=== PATIENT | female | born 1995 | race African-American/Black ===

== ENCOUNTER 2016-06-05 20:19 | Emergency (ER) | payer MEDICAID, OTHER ==
[2016-06-05 20:47] VITALS: BP 113/75; PULSE 84
--- NOTE | 2016-06-05 21:21 | PD ---
HPI Travel History International Travel<30 Days: No Contact w/Intl Traveler<30Days: No Known Affected Area: No History of Present Illness HPI This patient is a 20-year-old 1 para 0 EDC is July 04, 2016 presently at 35 weeks and 6 days she presents with a chief complaint of mild irregular cramping lower abdominal pain no ruptured membranes no vaginal bleeding the baby is active had sexual intercourse this morning and has been cramping since then care with Lauren garcia is significant for history of a bicornuate uterus and she had vaginal spotting early in the History Past Medical History Narrative Medical No known drug allergies no major medical problems Obstetric History Obstetric History First Past Surgical History Narrative Surgical Tonsils and adenoids Family History Family History: Negative Social History Alcohol Use: No Tobacco Use: No Substance Abuse: No Allergies-Medications (Allergen,Severity, Reaction): Coded Allergies: No Known Allergies (Verified , 12/06/15) Home Meds No Active Prescriptions or Reported Meds Review of Systems Gastrointestinal: Abdominal Pain (crampy lower abdominal pain) Physical Exam Narrative GENERAL: Well-nourished, well-developed patient. Alert oriented 3 and cooperative in no acute distress CARDIOVASCULAR: Regular rate and rhythm without murmurs, gallops, or rubs. RESPIRATORY: Breath sounds equal bilaterally. No accessory muscle use. ABDOMEN/GI: Gravid consistent with stated gestational age of 35 weeks Gravid to [-] weeks size Fundal Height: [-] GENITOURINARY: External Genitalia: intact and normal in appearance BUS glands: [-] Cervix: [-] Posterior soft Dilatation: [-] Closed Effacement: [-] 0 Station: [-] -2 Presentation: [-] Vertex Membranes: [intact Uterine Contractions: [-] Irregular FHT's: Category: [-] 1 Baseline: [-] 140 Reactive: [-]+ Variability: [-] Moderate Decels: [-] 0 EXTREMITIES: No cyanosis or edema. 2+ reflexes NEUROLOGICAL: Awake and alert. Motor and sensory grossly within normal limits. Five out of 5 muscle strength in all muscle groups. Normal speech. Data Data Vital Signs Reviewed: Yes (blood pressures 113/75 pulse is 84 she is afebrile) Orders Vital Signs (Adult) .ON ADMISSION (06/05/16 21:05) ^ Labor Status (06/05/16 21:05) ^ Hydration (06/05/16 21:05) MDM Medical Record Reviewed: Yes Narrative Course / MDM 20-year-old 35 weeks and 6 days Not in labor [place] after sexual intercourse Category 1 tracing Plan Patient has been monitored Discharge home By mouth fluid hydration Pelvic rest Warm tub bath kick count Keep her next appointment with Lauren Gray Diagnosis Diagnosis: Primary Impression: False labor before 37 completed weeks of gestation Qualified Code: O47.03 - False labor before 37 completed weeks of gestation, third trimester Additional Impression: 35 weeks gestation of Disposition: DISCHARGE HOME Condition: Stable Scripts No Active Prescriptions or Reported Meds Faina Corona MD Jun 05, 2016 21:21
== END 2016-06-05 22:34 | disposition home or self-care (01) ==
LOC: HOBED 20:19
DX: O47.03 False labor before 37 completed weeks of gestation, third trimester (principal); Z3A.35 35 weeks gestation of pregnancy
CPT/HCPCS: 99284

== ENCOUNTER 2016-06-19 10:13 | Emergency (ER) | payer MEDICAID ==
--- NOTE | 2016-06-19 10:57 | PD ---
HPI Chief Complaint Leaking fluid Date Seen: Jun 19, 2016 Time Seen: 10:51 Travel History International Travel<30 Days: No Contact w/Intl Traveler<30Days: No Known Affected Area: No History of Present Illness HPI 20-year-old 1 at 37+ weeks gestation with an EDC of July 04, 2016 who reports leaking fluid for 3 days. She denies contractions. She reports good movement. She denies bleeding or irritating vaginal discharge. Para: 0 : 1 History Past Medical History Medical History: Denies Significant Hx Obstetric History Obstetric History Uncomplicated care with Lauren Gray Family History Family History: Negative Social History Alcohol Use: No Tobacco Use: No Substance Abuse: No Allergies-Medications (Allergen,Severity, Reaction): Coded Allergies: No Known Allergies (Verified , 12/06/15) Home Meds No Active Prescriptions or Reported Meds Review of Systems Except as stated in HPI: all other systems reviewed are Neg Physical Exam Narrative GENERAL: Well-nourished, well-developed patient. SKIN: Warm and dry. ABDOMEN/GI: Abdomen soft, non-tender, bowel sounds present, no rebound, no guarding Gravid to [-] weeks size Fundal Height: [-] GENITOURINARY: External Genitalia: intact and normal in appearance BUS glands: [Negative-] Cervix: [-] Dilatation: [Closed-] Effacement: [50-] Station: [-3-] Presentation: [-Vertex] Membranes: [intact] Uterine Contractions: [Where-] FHT's: Category: [1-] Baseline: [-] Reactive: [-] Variability: [-] Decels: [-] EXTREMITIES: No cyanosis or edema. BACK: Nontender without obvious deformity. No CVA tenderness. NEUROLOGICAL: Awake and alert. Motor and sensory grossly within normal limits. Five out of 5 muscle strength in all muscle groups. Normal speech. Data Data Vital Signs Reviewed: Yes MDM Medical Record Reviewed: Yes Narrative Course / MDM Assessment: 37+ week and uterine with reactive NST and no evidence of ruptured membranes. Plan: The amnisure was negative. The patient was encouraged to continue her care visits as scheduled. Labor precautions were reviewed. Diagnosis Diagnosis: Primary Impression: 37 weeks gestation of Additional Impression: Irregular uterine contractions Disposition: DISCHARGE HOME Scripts No Active Prescriptions or Reported Meds Pedro Resendiz MD Jun 19, 2016 10:57
== END 2016-06-19 11:37 | disposition home or self-care (01) ==
LOC: HOBED 10:13
DX: O26.893 Other specified pregnancy related conditions, third trimester (principal); Z3A.37 37 weeks gestation of pregnancy
CPT/HCPCS: 59025; 84112

== ENCOUNTER 2016-06-20 21:52 | Inpatient (IN) | payer MEDICAID ==
[2016-06-20] MEDS ORDERED: LACTATED RINGER'S 1000 ML INJ 1,000 ML IV PRN (22:53)
[2016-06-20] MEDS ORDERED: OXYTOCIN 30 UNITS-500ML PREMIX 500 ML IV SCH (23:00)
[2016-06-20] MEDS ORDERED: LIDOCAINE HCL 1% 50 ML VIAL INFIL PRN (23:00)
[2016-06-20] MEDS ORDERED: ONDANSETRON HCL 4 MG/2 ML VIAL IV PRN (23:00)
[2016-06-20] MEDS ORDERED: LIDOCAINE HCL 1% 50 ML VIAL I-DERMAL PRN (23:00)
[2016-06-20] MEDS ORDERED: MINERAL OIL 10 ML VIAL TOPICAL PRN (23:00)
[2016-06-20] MEDS ORDERED: CITRIC ACID-SODIUM CITRATE LIQ 30 ML UDC PO SCH (23:00)
[2016-06-20] MEDS ORDERED: SODIUM CHLORID 0.9% 500 ML INJ 500 ML IV PRN (23:00)
[2016-06-20] MEDS ORDERED: OXYTOCIN 30 UNITS-500ML PREMIX 500 ML IV ONE (23:00)
[2016-06-20] MEDS ORDERED: SODIUM CHLOR 0.9% 1000 ML INJ 1,000 ML IV PRN (23:13)
--- NOTE | 2016-06-20 23:20 | PD ---
HPI Chief Complaint Water broke Date Seen: Jun 20, 2016 Travel History International Travel<30 Days: No Contact w/Intl Traveler<30Days: No History of Present Illness HPI This patient is a 20-year-old white female at 38 weeks presents complaining ruptured membranes at home, she is having occasional contraction no pain no bleeding, heart rate tracing is reactive and only a few irregular contractions been seen. Patient's been seen by Lauren Gray care Para: 0 : 1 History Past Medical History Medical History: Denies Significant Hx Allergies-Medications (Allergen,Severity, Reaction): Coded Allergies: No Known Allergies (Verified , 06/19/16) Home Meds No Active Prescriptions or Reported Meds Review of Systems General / Constitutional: No: Fever, Weight Gain, Chills, Other Eyes: No: Diploplia, Blurred Vision, Visual changes, Pain, Photophobia HENT: No: Headaches, Vertigo, Lightheadedness Cardiovascular: No: Irregular Rhythm, Chest Pain or Discomfort, Palpitations, Tachycardia, Syncope, Varicosities, Edema, Cyanosis Respiratory: No: Cough, Short of Breath, Other Gastrointestinal: No: Nausea, Vomiting, Diarrhea Genitourinary: No: Decreased Urinary Output, Oliguria Musculoskeletal: No: Limited ROM, Weakness, Cramping, Edema, Pain Skin: No Rash, No Itching, No Dryness, No Lumps, No Change in Pigmentation, No Change in Nails, No Alopecia, No Lesions Neurologic: No: Weakness, Dizziness, Syncope, Focal Abnormalities, Coordination Problem, Headache, Slurred Speech, Seizures Psychiatric: No: Depression, Suicidal Ideations, Homicidal Ideation Endocrine: No: Heat Intolerance, Cold Intolerance, Polydipsia, Polyuria, Other Physical Exam Narrative GENERAL: Well-nourished, well-developed patient. SKIN: Warm and dry. HEAD: Normocephalic and atraumatic. EYES: No scleral icterus. No injection or drainage. ENT: No nasal drainage noted. Mucous membranes pink. Airway patent. NECK: Supple, trachea midline. No JVD. CARDIOVASCULAR: Regular rate and rhythm without murmurs, gallops, or rubs. RESPIRATORY: Breath sounds equal bilaterally. No accessory muscle use. BREASTS: Bilateral exam showed no masses , no retractions, no nipple discharge. ABDOMEN/GI: Abdomen soft, non-tender, bowel sounds present, no rebound, no guarding Gravid to [36-] weeks size Fundal Height: [37 cm-] GENITOURINARY: External Genitalia: intact and normal in appearance BUS glands: [-] Cervix: [-] Dilatation: [-1] Effacement: [70-] Station: [-3] Presentation: [-vtx] bedside ultrasound Membranes: [i ruptured] amnio sure positive Uterine Contractions: [irreg-] FHT's: Category: [1-] Baseline: [-144] Reactive: [yes-] Variability: [mod-] Decels: [none-] EXTREMITIES: No cyanosis or edema. BACK: Nontender without obvious deformity. No CVA tenderness. NEUROLOGICAL: Awake and alert. Motor and sensory grossly within normal limits. Five out of 5 muscle strength in all muscle groups. Normal speech. Data Data Orders Ob (2e) Additional Admit Info (06/20/16 22:46) Admit To Inpatient (06/20/16 ) Code Status (06/20/16 22:53) Vital Signs (Adult) .Per protocol (06/20/16 22:53) Activity Oob Ad Leonie (06/20/16 22:53) ^ Heart (06/20/16 22:53) ^ Amnioinfusion (06/20/16 22:53) Urinary Catheter Management .ONCE (06/20/16 22:53) Lactated Ringer's 1000 Ml Inj (Lr 1000 M (06/20/16 22:53) Lactated Ringer's 1000 Ml Inj (Lr 1000 M (06/20/16 22:53) Sodium Chlorid 0.9% 500 Ml Inj (Ns 500 M (06/20/16 23:00) Sodium Chlor 0.9% 1000 Ml Inj (Ns 1000 M (06/20/16 23:13) Lidocaine 1% Inj (50 Ml) (Xylocaine 1% I (06/20/16 23:00) Citric Acid-Sodium Citrate Liq (Bicitra (06/20/16 23:00) Ondansetron Inj (Zofran Inj) (06/20/16 23:00) Fentanyl Inj (Fentanyl Inj) (06/20/16 23:00) Fentanyl Inj (Fentanyl Inj) (06/20/16 23:00) Complete Blood Count With Diff (06/20/16 22:53) Hold Clot (06/20/16 22:53) Abo/Rh Blood Type (06/20/16 22:53) Urinalysis - C+S If Indicated (06/20/16 22:53) Resp Oxygen Non Rebreathe Mask (06/20/16 ) ^ Epidural / Intrathecal Infus (06/20/16 22:53) Oxytocin 30 Units-500ml Premix (Pitocin (06/20/16 23:00) Lidocaine 1% Inj (50 Ml) (Xylocaine 1% I (06/20/16 23:00) Light Mineral Oil (Muri-Lube Oil) (06/20/16 23:00) Inpatient Certification (06/20/16 ) Specimen To Be Collected PRN (06/20/16 22:53) ^ Non Stress Test (06/20/16 22:57) Response To Medication .Post New Med Administration, Reaction (06/20/16 22:57) ^ Discontinue Medication (06/20/16 22:57) Oxytocin 30 Units-500ml Premix (Pitocin (06/20/16 23:00) Labs Amnio sure positive, GBS negative MDM Interpretation(s) This patient is a 20-year-old white female 38 weeks with spontaneous ruptured membranes term, no bleeding or pain noted, amnio sure is positive, GBS is negative, patient is followed by Lauren Gray care. Her heart rate tracing is reactive she has irregular contractions, her cervix is 1 cm 70% effaced. Vertex confirmed by bedside ultrasound done by me. Plan Plan to admit the patient for labor augmentation due to spontaneous ruptured membranes at term Diagnosis Diagnosis: Primary Impression: Premature rupture of membranes Additional Impression: Srinivasa Alonachandra's contraction Scripts No Active Prescriptions or Reported Meds Dakota Denny II, MD Jun 20, 2016 23:20
--- NOTE | 2016-06-20 23:29 | HHI.HP ---
History & Physical H&P HPI HPI Chief Complaint Water broke Date Seen: Jun 20, 2016 Travel History International Travel<30 Days: No Contact w/Intl Traveler<30Days: No History of Present Illness HPI This patient is a 20-year-old white female at 38 weeks with history of bicornuate uterus presents complaining of ruptured membranes at home, she is having occasional contraction no pain no bleeding, heart rate tracing is reactive and only a few irregular contractions been seen. 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 ; history of bicornuate uterus diagnosed by ultrasound per patient at [facility] [address] FH: Parents healthy Social: light cigarette smoking prior to , alcohol use on weekends but not while , no drug use Allergies-Medications Allergies-Medications (Allergen,Severity, Reaction): Coded Allergies: No Known Allergies (Verified , 06/19/16) Home Meds No Active Prescriptions or Reported Meds ROS Review of Systems General / Constitutional: No: Fever, Weight Gain, Chills, Other Eyes: No: Diploplia, Blurred Vision, Visual changes, Pain, Photophobia HENT: No: Headaches, Vertigo, Lightheadedness Cardiovascular: No: Irregular Rhythm, Chest Pain or Discomfort, Palpitations, Tachycardia, Syncope, Varicosities, Edema, Cyanosis Respiratory: No: Cough, Short of Breath, Other Gastrointestinal: No: Nausea, Vomiting, Diarrhea Genitourinary: No: Decreased Urinary Output, Oliguria Musculoskeletal: No: Limited ROM, Weakness, Cramping, Edema, Pain Skin: No Rash, No Itching, No Dryness, No Lumps, No Change in Pigmentation, No Change in Nails, No Alopecia, No Lesions Neurologic: No: Weakness, Dizziness, Syncope, Focal Abnormalities, Coordination Problem, Headache, Slurred Speech, Seizures Psychiatric: No: Depression, Suicidal Ideations, Homicidal Ideation Endocrine: No: Heat Intolerance, Cold Intolerance, Polydipsia, Polyuria, Other Physical Exam Physical Exam Narrative GENERAL: Well-nourished, well-developed patient. SKIN: Warm and dry. HEAD: Normocephalic and atraumatic. EYES: No scleral icterus. No injection or drainage. ENT: No nasal drainage noted. Mucous membranes pink. Airway patent. NECK: Supple, trachea midline. No JVD. CARDIOVASCULAR: Regular rate and rhythm without murmurs, gallops, or rubs. RESPIRATORY: Breath sounds equal bilaterally. No accessory muscle use. ABDOMEN/GI: Abdomen soft, non-tender, no rebound, no guarding Gravid to 36- weeks size Fundal Height: 37 cm- GENITOURINARY: External Genitalia: intact and normal in appearance Cervix: Soft Dilatation: -1 Effacement: 70 Station: -3 Presentation: -vtx bedside ultrasound Membranes: SROM approx 2100; amnisure positive Uterine Contractions: irregular FHT's: Category: 1 Baseline: -144 Reactive: yes- Variability: mod- Decels: none- EXTREMITIES: No cyanosis or edema. BACK: Nontender without obvious deformity. No CVA tenderness. NEUROLOGICAL: Awake and alert. Motor and sensory grossly within normal limits. Normal speech. Data Data Data Orders Ob (2e) Additional Admit Info (06/20/16 22:46) Admit To Inpatient (06/20/16 ) Code Status (06/20/16 22:53) Vital Signs (Adult) .Per protocol (06/20/16 22:53) Activity Oob Ad Leonie (06/20/16 22:53) ^ Heart (06/20/16 22:53) ^ Amnioinfusion (06/20/16 22:53) Urinary Catheter Management .ONCE (06/20/16 22:53) Lactated Ringer's 1000 Ml Inj (Lr 1000 M (06/20/16 22:53) Lactated Ringer's 1000 Ml Inj (Lr 1000 M (06/20/16 22:53) Sodium Chlorid 0.9% 500 Ml Inj (Ns 500 M (06/20/16 23:00) Sodium Chlor 0.9% 1000 Ml Inj (Ns 1000 M (06/20/16 23:13) Lidocaine 1% Inj (50 Ml) (Xylocaine 1% I (06/20/16 23:00) Citric Acid-Sodium Citrate Liq (Bicitra (06/20/16 23:00) Ondansetron Inj (Zofran Inj) (06/20/16 23:00) Fentanyl Inj (Fentanyl Inj) (06/20/16 23:00) Fentanyl Inj (Fentanyl Inj) (06/20/16 23:00) Complete Blood Count With Diff (06/20/16 22:53) Hold Clot (06/20/16 22:53) Abo/Rh Blood Type (06/20/16 22:53) Urinalysis - C+S If Indicated (06/20/16 22:53) Resp Oxygen Non Rebreathe Mask (06/20/16 ) ^ Epidural / Intrathecal Infus (06/20/16 22:53) Oxytocin 30 Units-500ml Premix (Pitocin (06/20/16 23:00) Lidocaine 1% Inj (50 Ml) (Xylocaine 1% I (06/20/16 23:00) Light Mineral Oil (Muri-Lube Oil) (06/20/16 23:00) Inpatient Certification (06/20/16 ) Specimen To Be Collected PRN (06/20/16 22:53) ^ Non Stress Test (06/20/16 22:57) Response To Medication .Post New Med Administration, Reaction (06/20/16 22:57) ^ Discontinue Medication (06/20/16 22:57) Oxytocin 30 Units-500ml Premix (Pitocin (06/20/16 23:00) Labs Amnio sure positive, GBS negative MDM MDM Interpretation(s) This patient is a 20-year-old white female 38 weeks with spontaneous ruptured membranes term, no bleeding or pain noted, amnio sure is positive, GBS is negative, patient is followed by Lauren Gray care. Her heart rate tracing is reactive she has irregular contractions, her cervix is 1 cm 70% effaced. Vertex confirmed by bedside ultrasound done by Dr. Denny. Plan Plan to admit the patient for labor augmentation due to spontaneous ruptured membranes at term Begin pitocin infusion 05/31/29 titrated per protocol Epidural if desired by patient Monitor FHTs Cervical checks Diagnosis Diagnosis: Primary Impression: Premature rupture of membranes Additional Impression: Srinivasa Hick's contraction Scripts No Active Prescriptions or Reported Meds sdw Dr. Couch, Van Farah MD R1 Jun 20, 2016 23:29
[2016-06-20 23:53] LABS: AUTOMATED NEUTROPHIL # 6.7 TH/MM3 (1.8-7.7); BASOPHIL % 0.1 % (0.0-2.0); EOSINOPHIL % 0.1 % (0.0-4.0); HEMO FLAGS DIFF FINAL; LYMPH % 28.2 % (9.0-44.0); LYMPHOCYTE # 2.9 TH/MM3 (1.0-4.8); MEAN CELL VOLUME 92.8 FL (80.0-100.0); MEAN CORPUSCULAR HEMOGLOBIN 32.6 PG (27.0-34.0); MEAN CORPUSCULAR HGB CONC 35.1 % (32.0-36.0); MONO % 5.7 % (0.0-8.0); NEUT % 65.9 % (16.0-70.0); PLATELET COUNT 262 TH/MM3 (150-450); RED BLOOD COUNT 3.77 MIL/MM3 (4.00-5.30); RED CELL DISTRIBUTION WIDTH 12.9 % (11.6-17.2); WHITE BLOOD COUNT 10.2 TH/MM3 (4.0-11.0)
[2016-06-20] MEDS: LACTATED RINGER'S 1000 ML INJ 1,000 ML IV SCH (23:54)
[2016-06-21] VITALS (38 sets, daily range): BP systolic 95–132; BP diastolic 62–95; PULSE 63–148; RESP 16–18; TEMP 97.3–98.3
[2016-06-21 00:06] LABS: BLOOD, URINE NEG (NEG); COMMENT (UR) CULTURE INDICATED; CULTURE IF INDICATED CULTURE INDICATED; GLUCOSE,URINE NEG (NEG); KETONE, URINE NEG (NEG); MUCUS URINE FEW /lpf (OCC); NITRITE,URINE NEG (NEG); SQUAMOUS EPITHELIAL CELL URINE 18 /hpf (0-5); URINE COLOR YELLOW (YELLW/STRAW)
[2016-06-21] MEDS: LACTATED RINGER'S 1000 ML INJ 1,000 ML IV SCH ×2 (04:59→10:47)
--- NOTE | 2016-06-21 08:01 | PD.LABORPN ---
Subjective Subjective Resting comfortably, no concerns Objective Vital Signs Vital Signs Date Time Temp Pulse Resp B/P Pulse Ox O2 Delivery O2 Flow Rate FiO2 06/21/16 03:06 71 109/69 06/21/16 01:51 98.1 06/21/16 01:35 72 121/74 06/21/16 01:08 69 132/80 Objective Pelvic Exam: Cervix: Soft Dilatation: 2 Effacement: 90 Station: 0 Presentation: Vertex Membranes: SROM at 06/20 Uterine Contractions: Regular every 3-5 mins FHT's: Category: 1 Baseline: 130 Reactive: Y Variability: moderate Decels: N Assessment/Plan Assessment and Plan 20 yo at 38/1 in labor #1 IUP Category 1 tracing, reassuring * Continue to monitor #2 GBS negative #3 SROM SROM at 06/20 * Continue pitocin infusion * Epidural when further along if patient desires dw Van Farah MD R1 Jun 21, 2016 08:01
--- NOTE | 2016-06-21 10:50 | PD.LABORPN ---
Subjective Subjective Patient complaining of pain, decline epidural at this time, requests IV pain meds, reports presence of movement, contractions and leakage of fluids. Denies vaginal bleeding, vaginal exam shows presence of a forebag Objective Vital Signs Vital signs are stable Vital Signs Date Time Temp Pulse Resp B/P Pulse Ox O2 Delivery O2 Flow Rate FiO2 06/21/16 09:32 66 113/78 06/21/16 09:31 97.5 06/21/16 08:58 16 06/21/16 08:55 16 06/21/16 08:54 69 115/86 06/21/16 07:58 16 06/21/16 07:48 72 125/77 06/21/16 03:06 71 109/69 Objective Pelvic Exam: Cervix: 4 cm, 80% effaced, -3 station, forebag is ruptured with clear fluid Dilatation: 4 cm Effacement: 80% Station: -3 Presentation: Cephalic Membranes: Ruptured Uterine Contractions: Irregular FHT's: Category: one Baseline: 130s Reactive: Yes Variability: Moderate Decels: None Assessment/Plan Assessment and Plan Term at 38 weeks with premature rupture of membranes in labor, reassuring heart status, GBS negative. Continue current management. Patient may have epidural for pain. May augment labor with Pitocin if needed. Reynaldo Jiang MD Jun 21, 2016 10:50
[2016-06-21] MEDS ORDERED: OXYTOCIN 30 UNITS-500ML PREMIX 500 ML IV SCH (11:00)
[2016-06-21] MEDS ORDERED: fentaNYL 2MCG-BUPIV 0.125% INJ 100 ML ONE ×2 (13:00→13:08)
[2016-06-21] MEDS ORDERED: fentaNYL 2MCG-BUPIV 0.125% INJ 100 ML EPIDURAL SCH (14:30)
[2016-06-21] MEDS ORDERED: NO SYSTEM NARCOTICS XX PRN (14:30)
[2016-06-21] MEDS ORDERED: DO NOT ADMINISTER ANTICOAGULANTS XX PRN (14:30)
[2016-06-21] MEDS ORDERED: ePHEDrine/NS 50 MG/5 ML SYR IV PRN (14:30)
[2016-06-21] MEDS ORDERED: ONDANSETRON ODT 4 MG TAB PO PRN (15:30)
[2016-06-21] MEDS ORDERED: oxyCODONE/ACETAMINOPHEN 5 MG/325 MG TAB PO PRN ×2 (15:30)
[2016-06-21] MEDS ORDERED: ACETAMINOPHEN 325 MG TAB PO PRN (15:30)
[2016-06-21] MEDS ORDERED: IBUPROFEN 600 MG TAB PO PRN (15:30)
[2016-06-21] MEDS ORDERED: ZOLPIDEM TARTRATE 5 MG TAB PO PRN (15:30)
[2016-06-21] MEDS ORDERED: WITCH HAZEL 50%/GLYCERIN 12.5% 40 PAD JAR TOPICAL PRN (15:30)
[2016-06-21] MEDS ORDERED: ALUMINUM/MAGNESIUM/SIMETH 30 ML CUP PO PRN (15:30)
[2016-06-21] MEDS ORDERED: SODIUM CHLORIDE 0.9% FLUSH 5 ML FLUSH IV PRN (15:30)
[2016-06-21] MEDS ORDERED: DOCUSATE SODIUM 50 MG/SENNA 8.6 MG TAB PO PRN (15:30)
[2016-06-21] MEDS ORDERED: BENZOCAINE 20% TOPICAL SPRAY 60 ML CAN TOPICAL PRN (15:30)
[2016-06-21] MEDS ORDERED: MEASLES, MUMPS, RUBELLA VACCINE 0.5 ML VIAL SQ ONE (16:00)
[2016-06-21] MEDS ORDERED: DIPHTH/TETANUS/ACEL PERTUSSIS (BOOSTER) 0.5 ML VIAL/PFS IM ONE (16:00)
--- NOTE | 2016-06-21 16:51 | PD.OB.DELI ---
Delivery Date: Jun 21, 2016 Anesthesia: Epidural Episiotomy: None Vaginal Delivery: Normal, Spontaneous Presentation: Occiput anterior, Vertex Nuchal Cord: None : Female, Single One Minute : 8 Five Minute : 9 Weight: 3270 grams, 7 pounds 3.3 ounces Infant Care: Suctioned, Spontaneous crying, Responded to stimulation, Transferred to nursery, Other (delivery attended by the nursery team) Placenta: Spontaneous delivery, Intact, 3 vessel cord (placenta sent to pathology) Laceration: Perineal laceration, 1 deg Repair: Chromic interrupted Additional Information 20-year-old at 38 weeks with history of bicornuate uterus presents complaining of premature ruptured membranes at home, premature rupture of membranes was confirmed and patient noted to be in labor, labor was subsequently augmented with Pitocin and patient received epidural for pain management. She progressed well in labor and subsequently attained a fully dilated cervix, 100% effaced and +3 station. At this point the patient was encouraged to push, patient delivered a live female infant from left occiput anterior position over an intact perineum no with Apgars of 8 at 1 minute and 9 at 5 minutes, head was delivered atraumatically followed by delivery of the shoulders and the rest of the body at 15.14 hours. The cord was doubly clamped and cut and the baby was handed off to the nursery team, cord blood was obtained. The placenta was delivered intact membranes and a 3 vessel cord, a uterine massage was performed and a bicornate uterus was noted on examination. The baby's weight is 3270 g, 7 pounds 3.3 ounces. Inspection of the canal revealed first degree perineal laceration, intact vagina, intact cervix and a firm uterine fundus. Pitocin was started intravenously. The first- degree perineal laceration was repaired using 3-0 chromic sutures without complications. The patient tolerated the birthing procedure well, all sponges, laps, needle and instrument counts were correct 2. The patient and the infant remained in the labor and delivery room in stable condition. Estimated blood loss is 400 mL. Reynaldo Jiang MD Jun 21, 2016 16:51
[2016-06-21] MEDS ORDERED: SODIUM CHLORIDE 0.9% FLUSH 5 ML FLUSH IV SCH (21:00)
[2016-06-22 05:58] LABS: AUTOMATED NEUTROPHIL # 10.4 TH/MM3 (1.8-7.7); HEMATOCRIT 27.8 % (35.0-46.0); HEMO FLAGS DIFF FINAL; LYMPHOCYTE # 2.5 TH/MM3 (1.0-4.8); MEAN CELL VOLUME 92.5 FL (80.0-100.0); MEAN CORPUSCULAR HEMOGLOBIN 32.6 PG (27.0-34.0); MEAN CORPUSCULAR HGB CONC 35.3 % (32.0-36.0); MONO % 7.7 % (0.0-8.0); NEUT % 74.3 % (16.0-70.0); PLATELET COUNT 221 TH/MM3 (150-450); RED CELL DISTRIBUTION WIDTH 13.1 % (11.6-17.2)
--- NOTE | 2016-06-22 08:13 | HHI.OB ---
Subjective Post Day: 1 Remarks day #1. AFVSS overnight. Pain well-controlled. Decreased lochia. Denies dysuria. She is feeding the baby via breast. Appetite good. No nausea or vomiting. Endorses flatus. Denies bowel movement. Ambulating well. Denies calf pain, shortness of breath, or cough. Otherwise, she is doing well this morning and has no other complaints. (Reyes Leigh MD R1) Objective Vitals/I&O Vital Signs Date Time Temp Pulse Resp B/P Pulse Ox O2 Delivery O2 Flow Rate FiO2 06/21/16 20:40 98.0 18 06/21/16 20:40 107 101/65 06/21/16 17:15 94 110/95 06/21/16 17:00 98 101/69 06/21/16 16:45 90 95/64 06/21/16 16:30 83 105/67 06/21/16 16:15 89 108/64 06/21/16 16:00 100 110/62 06/21/16 15:59 98.3 06/21/16 15:50 16 06/21/16 15:45 88 117/73 06/21/16 15:30 110 102/65 06/21/16 15:22 92 117/79 06/21/16 15:00 86 129/74 06/21/16 14:35 90 06/21/16 14:31 83 110/78 06/21/16 14:30 86 18 06/21/16 14:15 95 06/21/16 14:15 85 132/71 06/21/16 14:00 148 06/21/16 14:00 18 06/21/16 13:45 114 06/21/16 13:40 67 06/21/16 13:35 64 06/21/16 13:30 65 06/21/16 13:25 72 06/21/16 13:15 97.3 06/21/16 12:00 18 06/21/16 11:15 97.5 06/21/16 11:00 63 126/72 06/21/16 10:53 67 122/82 06/21/16 10:45 16 06/21/16 09:32 66 113/78 06/21/16 09:31 97.5 06/21/16 08:58 16 06/21/16 08:54 69 115/86 Objective Remarks GENERAL: Well-nourished, well-developed patient. CARDIOVASCULAR: Regular rate and rhythm without murmurs, gallops, or rubs. RESPIRATORY: Breath sounds equal bilaterally. No accessory muscle use. ABDOMEN/GI: Abdomen soft, non-tender. Fundus: Firm, non-tender at umbilicus. GENITOURINARY: Light to moderate bleeding. EXTREMITIES: No cyanosis or edema, non-tender, without signs of DVT. Medications and IVs Current Medications Medications (Trade) Dose Ordered Sig/Christie Route Start Time Stop Time Status Last Admin Miscellaneous Information No systemic narcotics to be given except... UNSCH PRN XX 06/21/16 14:30 06/22/16 14:29 Miscellaneous Information DO NOT ADMINISTER ANY ANTICOAGUL... UNSCH PRN XX 06/21/16 14:30 06/22/16 14:29 (NS Flush) 2 ml BID IV 06/21/16 21:00 (NS Flush) 2 ml UNSCH PRN IV 06/21/16 15:30 (Tylenol) 650 mg Q4H PRN PO 06/21/16 15:30 (Motrin) 600 mg Q6H PRN PO 06/21/16 15:30 (Percocet 5-325 Mg) 1 tab Q4H PRN PO 06/21/16 15:30 (Percocet 5-325 Mg) 2 tab Q4H PRN PO 06/21/16 15:30 (Americaine 20% Top Spr) 1 spray Q4H PRN TOPICAL 06/21/16 15:30 06/22/16 04:55 (Tucks Pads) 1 applic QID PRN TOPICAL 06/21/16 15:30 06/22/16 04:55 (Jordyn-Colace) 2 tab Q12H PRN PO 06/21/16 15:30 (Ambien) 5 mg HS PRN PO 06/21/16 15:30 (Mag-Al Plus Susp Liq) 15 ml Q8H PRN PO 06/21/16 15:30 (Zofran Odt) 4 mg Q6H PRN PO 06/21/16 15:30 (Reyes Leigh MD R1) Assessment/Plan Assessment and Plan 20y/o who is PPD#1 s/p . -Continue routine care. -Percocet and Motrin PRN pain. -Encouraged OOB. Advised pelvic rest for 6 wks. -Will need a f/u appt. within 6 wks. -Re: ctrl, she is undecided -D/c in 1-2 more days. wdw OB attending Discharge Planning 1-2 days (Reyes Leigh MD R1) Attending Attestation Patient seen and examined with the resident under direct supervision, I agree with the assessment and plan. (Reynaldo Jiang MD) Reyes Leigh MD R1 Jun 22, 2016 08:13 Reynaldo Jinag MD Jun 23, 2016 17:48
[2016-06-23] MEDS ORDERED: SENN1TAB PO (06:59)
[2016-06-23] MEDS ORDERED: IBUP-232 PO (06:59)
--- NOTE | 2016-06-23 07:00 | HHI.DCPOC ---
Discharge Care Plan Diagnosis: (1) Vaginal delivery Goals to Promote Your Health * To prevent worsening of your condition and complications * To maintain your health at the optimal level Directions to Meet Your Goals Take your medications as prescribed Follow your dietary instruction Follow activity as directed Keep your appointments as scheduled Take your immunizations and boosters as scheduled If your symptoms worsen call your PCP, if no PCP go to Urgent Care Center or Emergency Room Smoking is Dangerous to Your Health. Avoid second hand smoke Call the 24-hour hour crisis hotline for domestic abuse at Vahid Craven MD R2 Jun 23, 2016 07:00
--- NOTE | 2016-06-23 07:28 | HHI.OB ---
Subjective Post Day: 2 Remarks day #2. AFVSS overnight. Pain well-controlled. Decreased lochia. Denies dysuria. She is feeding the baby via breast. Appetite good. No nausea or vomiting. Endorses flatus. Denies bowel movement. Ambulating well. Denies calf pain, shortness of breath, or cough. Otherwise, she is doing well this morning and has no other complaints. (Reyes Leigh MD R1) Objective Objective Remarks GENERAL: Well-nourished, well-developed patient. CARDIOVASCULAR: Regular rate and rhythm without murmurs, gallops, or rubs. RESPIRATORY: Breath sounds equal bilaterally. No accessory muscle use. ABDOMEN/GI: Abdomen soft, non-tender. Fundus: Firm, non-tender at umbilicus. GENITOURINARY: Light to moderate bleeding. EXTREMITIES: No cyanosis or edema, non-tender, without signs of DVT. Medications and IVs Current Medications Medications (Trade) Dose Ordered Sig/Christie Route Start Time Stop Time Status Last Admin (NS Flush) 2 ml BID IV 06/21/16 21:00 (NS Flush) 2 ml UNSCH PRN IV 06/21/16 15:30 (Tylenol) 650 mg Q4H PRN PO 06/21/16 15:30 (Motrin) 600 mg Q6H PRN PO 06/21/16 15:30 (Percocet 5-325 Mg) 1 tab Q4H PRN PO 06/21/16 15:30 (Percocet 5-325 Mg) 2 tab Q4H PRN PO 06/21/16 15:30 (Americaine 20% Top Spr) 1 spray Q4H PRN TOPICAL 06/21/16 15:30 06/22/16 04:55 (Tucks Pads) 1 applic QID PRN TOPICAL 06/21/16 15:30 06/22/16 04:55 (Jordyn-Colace) 2 tab Q12H PRN PO 06/21/16 15:30 (Ambien) 5 mg HS PRN PO 06/21/16 15:30 (Mag-Al Plus Susp Liq) 15 ml Q8H PRN PO 06/21/16 15:30 (Zofran Odt) 4 mg Q6H PRN PO 06/21/16 15:30 (Reyes Leigh MD R1) Vitals/I&O Vital Signs Date Time Temp Pulse Resp B/P Pulse Ox O2 Delivery O2 Flow Rate FiO2 06/21/16 20:40 98.0 18 06/21/16 20:40 107 101/65 (Lori Golden MD) Assessment/Plan Assessment and Plan 20y/o who is PPD#2 s/p . -Continue routine care. -Percocet and Motrin PRN pain. -Encouraged OOB. Advised pelvic rest for 6 wks. -Will need a f/u appt. within 6 wks. -Re: ctrl, she is undecided -D/c today dw OB attending Discharge Planning Today (Reyes Leigh MD R1) Attending Attestation PPD #2 s/p Doing well well D/c home today Reviewed PP precautions F/u at [facility] [place] 2 weeks Patient seen and examined with Dr. Leigh (Lori Golden MD) Reyes Leigh MD R1 Jun 23, 2016 07:28 Lori Golden MD Jun 23, 2016 08:28
[2016-06-23 13:13] VITALS: TEMP 98.9
== END 2016-06-23 15:13 | disposition home or self-care (01) | DRG 775 ==
LOC: HOBED 21:52 → H2EB 22:46 → H1EA 06-21 18:17
PROVIDERS: ADMIT Obstetrics & Gynecology Maternal & Fetal Medicine; ATTEND Obstetrics & Gynecology Maternal & Fetal Medicine
PROC: 10E0XZZ Delivery of Products of Conception, External Approach (ICD-10-PCS; principal; 2016-06-21)
PROC: 0HQ9XZZ Repair Perineum Skin, External Approach (ICD-10-PCS; 2016-06-21)
PROC: 00HU33Z Insertion of Infusion Device into Spinal Canal, Percutaneous Approach (ICD-10-PCS; 2016-06-21)
PROC: 3E0R3CZ (ICD-10-PCS; 2016-06-21)
DX: O42.92 Full-term premature rupture of membranes, unspecified as to length of time between rupture and onset of labor (principal); O34.593 Maternal care for other abnormalities of gravid uterus, third trimester; Z37.0 Single live birth; Q51.3 Bicornate uterus; Z3A.38 38 weeks gestation of pregnancy; Z87.891 Personal history of nicotine dependence; O70.0 First degree perineal laceration during delivery
CPT/HCPCS: 59025; 81001; 84112; 85025; 86900; 86901; 87086; 88307; 99285; J2590; J3010; J7120